=== PATIENT | female | born 1955 | race Caucasian/White ===

== ENCOUNTER 2016-09-05 14:52 | Emergency (ER) | payer MEDICARE, MEDICAID ==
[~2016-09-05 14:52] MED LIST: CIPR500T94 PO; CYCL10TA2 PO; DIAZEPAM10 MG PO; FURO-69 PO; LISI2.5T PO; METF500T4 PO; MORP15TA PO; POTA10CA PO; PREG50CA PO; VENL150C PO; VENL37.5 PO
[2016-09-05 14:55] VITALS: BP 155/111
[2016-09-05] MEDS ORDERED: HYDR-971 PO (15:13)
[2016-09-05] MEDS ORDERED: PENI500T PO (15:13)
--- NOTE | 2016-09-05 15:13 | PHYS DOC ---
Past Medical History Past Medical History: Asthma, Fibromyalgia, Hypertension, Other Additional Past Medical Histor: SBO, ovarian cysts Past Surgical History: Appendectomy, Knee Replacement, Tonsillectomy, Other Additional Past Surgical Histo: roatator L/R x 2, ovarian cysts removal Additional Information: nonsmoker Alcohol Use: None Drug Use: None Adult General Chief Complaint Chief Complaint: DENTAL PROBLEM HPI HPI Patient is a 61 year old female who presents with left mandibular dental pain starting 2 days ago. She had the adjacent tooth extracted a few months ago. She reports swelling of the gums and pain in the ears. She is a non-smoker. Her PCP is Dr. Kasandra Witt. Review of Systems Review of Systems Constitutional: Denies fever or chills. [] Eyes: Denies change in visual acuity, redness, or eye pain. [] HENT: Denies nasal congestion or sore throat. Reports dental pain and ear pain. Integument: Denies rash or skin lesions. [] Neurologic: Denies headache, focal weakness or sensory changes. [] Allergies Allergies Allergies Coded Allergies Type Severity Reaction Last Updated Verified pregabalin Allergy Mild 05/20/16 Yes Physical Exam Physical Exam Constitutional: Well developed, well nourished, no acute distress, non-toxic appearance. [] HENT: Normocephalic, atraumatic, bilateral external ears normal, oropharynx moist, no oral exudates, nose normal. Bilateral TMs without erythema or bulging. There is no posterior pharyngeal erythema or tonsillar edema. Tooth # 22 is carious and tender without significant gingival edema. There is no dental abscess. Eyes: PERRLA, EOMI, conjunctiva normal, no discharge. [] Neck: Normal range of motion, no tenderness, supple, no stridor. [] Skin: Warm, dry, no erythema, no rash. [] Neurologic: Alert and oriented X 3, normal motor function, normal sensory function, no focal deficits noted. [] Psychologic: Affect normal, judgement normal, mood normal. [] Current Patient Data Vital Signs Vital Signs Date Time Temp Pulse Resp B/P Pulse Ox O2 Delivery O2 Flow Rate FiO2 09/05/16 14:55 98.0 108 22 98 Room Air 98.0 EKG EKG [] Radiology/Procedures Radiology/Procedures [] Course & Med Decision Making Course & Med Decision Making Pertinent Labs and Imaging studies reviewed. (See chart for details) [] Dragon Disclaimer Dragon Disclaimer This electronic medical record was generated, in whole or in part, using a voice recognition dictation system. Departure Departure Impression: Primary Impression: Dental caries Disposition: 01 HOME, SELF-CARE Condition: STABLE Referrals: KASANDRA WITT (PCP) Patient Instructions: Dental Caries Additional Instructions: Please complete all of the prescribed antibiotics, even if you are feeling better. Please take the prescribed pain medication as directed. Do not drive or operate heavy machinery while taking pain medication. Please follow up with the dentist of your choice as soon as possible. Return to the emergency department if you have any new or concerning symptoms. Scripts Hydrocodone/Apap 5-325 (Stanley 5-325 Tablet)1 Each Tablet1 Tab PO PRN Q6HRS PRN PAIN #20 TAB Prov:JENNIFER GALE 09/05/16 Penicillin V Potassium 500 Mg Tablet1 Tab PO TID #30 TAB Prov:JENNIFER GALE 09/05/16 JENNIFER GALE Sep 05, 2016 15:13
== END 2016-09-05 15:27 | disposition home or self-care (01) ==
LOC: ER 14:52
DX: K02.9 Dental caries, unspecified (principal); I10 Essential (primary) hypertension; M79.7 Fibromyalgia; J45.909 Unspecified asthma, uncomplicated; Z88.8 Allergy status to other drugs, medicaments and biological substances
CPT/HCPCS: 99283

== ENCOUNTER → 2016-10-19 | Outpatient (CLI) | payer MEDICARE, MEDICAID ==
[~2016-10-19] MED LIST changes: +HYDR-971 PO; +PENI500T PO
--- NOTE | 2016-10-19 12:08 | RAD ---
PROCEDURE Lumbar spine MRI without contrast. HISTORY Radiculopathy. TECHNIQUE Multiplanar and multi sequence magnetic resonance imaging of the lumbar spine was performed without contrast. COMPARISON None. FINDINGS There is mild lumbar scoliosis and hyperlordosis. There is grade 1 anterolisthesis of L4 on L5 and L5 on S1, measuring approximately 2 mm. There is also minimal retrolisthesis of L1 on L2, L2 on L3 and L3 on L4. There is endplate remodeling and disc desiccation at multiple levels. There are few small endplate Schmorl's nodes. There are few hemangiomas. No suspicious osseous lesion is seen. The conus terminates at L1. At T11-T12, there is a left foraminal to lateral disc protrusion superimposed on a disc bulge and left lateral predominant endplate osteophytosis. There is mild facet arthropathy. There is mild left greater than right foraminal stenosis. At T12-L1, there are minimal left paracentral and foraminal disc protrusions superimposed on a disc bulge and endplate remodeling. There is mild facet arthropathy. There is no stenosis. At L1-L2, there is a left foraminal to lateral disc protrusion and broad-based posterior disc protrusion with minimal extrusion superimposed on a disc bulge and left lateral predominant endplate osteophytosis. There is mild facet arthropathy. There is hypertrophy of the ligamentum flavum. There is mild left foraminal stenosis. At L2-L3, there is a disc bulge and endplate remodeling. There is mild facet arthropathy. There is hypertrophy of the ligamentum flavum. There is no stenosis. At L3-L4, there is a shallow posterior disc protrusion with minimal inferior extrusion superimposed on a disc bulge and endplate remodeling. There is moderate facet arthropathy. There is hypertrophy of the ligamentum flavum. There is mild central canal stenosis. At L4-L5, there is a disc bulge and endplate remodeling. There is moderate to severe facet arthropathy. There is hypertrophy of the ligamentum flavum. There is mild bilateral foraminal stenosis. At L5-S1, there is a right lateral predominant disc bulge and endplate remodeling. There is moderate facet arthropathy. There is mild right foraminal stenosis. IMPRESSION 1. Multilevel degenerative change within the lower thoracic and lumbar spine, resulting in stenosis as described above. 2. Minimal grade 1 anterolisthesis of L4 on L5 and L5 on S1 and retrolisthesis at the remainder of the lumbar levels. This is superimposed on mild scoliosis and hyperlordosis. Electronically signed by: Dary Bello (Oct 19, 2016 12:06:47)
== END | disposition home or self-care (01) ==
LOC: MRI 10:22
PROVIDERS: ATTEND Family Medicine
DX: M48.06 Spinal stenosis, lumbar region (principal); M54.12 Radiculopathy, cervical region
CPT/HCPCS: 72148

== ENCOUNTER → 2017-07-14 | Outpatient (CLI) | payer MEDICAID, MEDICARE ==
[~2017-07-14] MED LIST changes: +ASPI-482 PO; +BUSP15TA PO; +CELE100C PO; +IOHEXOL 180 MG/ML 10 ML VIAL. ONE; +OXYC30TA64 PO; +OXYC5CAP PO; -POTA10CA PO; +POTASSIUM CHLO10 MEQ PO; +methylPREDNISolone ACETATE 40 MG/ML VIAL. ONE; +methylPREDNISolone ACETATE 80 MG/ML VIAL. ONE
--- NOTE | 2017-07-15 01:16 | PAIN ---
DATE OF SERVICE: 07/14/2017 INITIAL CONSULTATION FOR PAIN CLINIC CHIEF COMPLAINT: Low back, bilateral lower extremity pain. HISTORY OF PRESENT ILLNESS: The patient is a 62-year-old female who presents with history of pain since 1985 after an injury falling off a loading truck and hit her back on a steel bar, has had pain ever since that time, reports she has had multiple treatments over the years, nothing for the past 11 years. However, she did have some epidural injections at that time in an out of town location. The patient reports it did not help significantly. The patient reports that the pain has been getting worse on a daily basis, increasing; worse with activity, standing, walking and changing positions and better with sitting with lying down but does awaken her from sleep at least 2-3 times at night. The patient reports it can affect her bowel or bladder control, sometimes but no loss of continence. She is using a cane in her right hand and has for years and also a walker at times. She is going further distances. The patient has done exercising, counseling, physical therapy, trigger point injections, epidural injections, none since 1989 by her report. The others were back in 1985 or 1987 and no treatment since that time. The patient has had some physical therapy, however, and some water therapy, she reports within the last few years, she is uncertain on the date. The patient reports the pain is constant, sharp, stabbing, shooting radiating with numbness and tingling, burning, cramping, aching in the bilateral posterior low back into the posterior gluteus, posterior lateral thigh, lateral anterior thighs, posterior calf, slightly worse on the right than the left. Again, worse with activity, standing, walking and changing positions. The patient reports a disability rate from 0-10, 10 being the worst and 0 with family and home responsibilities, recreation, sexual behavior and life support activities, 1 with social activity and 1 with self-care activities. The patient did have an MRI scan of the lumbar spine showing multilevel degenerative changes resulting in stenosis as noted. Grade 1 anterolisthesis L4 on L5 and L5 on S1 with retrolisthesis and superimposed mild scoliosis and hyperlordosis, prominent disk bulge at L5-S1, L3-L4 with shallow posterior disk protrusion, L4-L5 shows disk bulge and endplate remodeling with [id number]-[id number] facet arthropathy. PAST MEDICAL HISTORY: Significant for arthritis; hypertension and diabetes type 2 now without medication, only diet controlled. PAST SURGICAL HISTORY: Previous surgeries include bilateral knee replacements, bilateral rotator cuff, tubal ligation, ovarian cystectomy, cholecystectomy and bowel resection. CURRENT MEDICATIONS: Include cyclobenzaprine, daily baby aspirin, Celebrex, Effexor, oxycodone and buspirone. ALLERGIES: The patient is allergic to CODEINE. FAMILY HISTORY: Significant for hypertension, diabetes, heart disease and cancer. SOCIAL HISTORY: The patient does not smoke, does not drink alcohol and is single. 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 REVIEW OF SYSTEMS: The patient's review of systems is positive for those items mentioned in history of present illness. All systems reviewed and otherwise negative. It is complete, full and well documented on the patient's chart. PHYSICAL EXAMINATION: VITAL SIGNS: Today, the patient's blood pressure is 173/108, pulse 96, respirations 18, temperature 98.0 degrees Fahrenheit, height is 5 feet 8 inches and weight is 262 pounds. GENERAL: The patient is awake, alert, oriented, appropriate and very pleasant demeanor. HEENT: Head shows normocephalic and atraumatic. Extraocular movements are intact, symmetrical. Oral cavity: Mucous membranes moist and pink. Dentition is intact. NECK: Shows anterior throat supple without palpable lymphadenopathy noted. Swallow reflex symmetrical. CHEST: Shows normal with inspection. Breath sounds clear to auscultation bilaterally. HEART: Shows S1 and S2 clear. No murmurs auscultated. ABDOMEN: Soft, nontender and nondistended. No palpable organomegaly. No rebound or guarding demonstrated. BACK: Shows spine grossly in the midline. Normal appearing thoracic kyphosis and lumbar lordotic curvature. No previous bruises, lesions, rashes or scars are noted. Lumbar paraspinous muscle shows symmetrical on inspection with palpation, some [id number] tenderness in the lower lumbar distribution bilaterally without trigger points, without radiation. No tenderness over the spinous processes over the sacrum and sacroiliac regions. The patient has good rotational motion both laterally greater than 10 degrees right and left full extension greater than 10 degrees, forward flexion 45 degrees without significant pain reported. Mild tenderness with extension only. Lower extremities show deep tendon reflexes at 1+ in the patellar and tendo calcaneus tendons are equal. Motor exam is approximately 4 on a scale of 5 but equal and symmetrical dorsiflexion, extension, quadriceps and hamstring flexion. Peripheral pulses are 1+ posterior tibial and dorsalis pedis pulses. No peripheral edema is noted. No clubbing. No cyanosis. Lower extremities are warm and dry to touch, equal in color and appearance. Straight leg raise noted to be positive bilaterally about 45 degrees with decreased pain with knee flexion. Gaenslen's and Arnoldo's maneuvers are negative bilaterally. The patient is able to stand is difficult to try to stand her toes as she loses her balance quickly. She has had very slow deliberate gait with a significant antalgic gait favoring the right lower extremity significantly, using a cane in her right hand to ambulate. IMPRESSION: 1. This is a 62-year-old female with a long history of low back, bilateral lower extremity pain in a radicular fashion since 1985. 2. MRI scan of lumbar spine as noted. 3. Hypertension. 4. Diabetes. 5. Arthritis. PLAN: Options were discussed with the patient including conservative medical management, physical therapy, interventional techniques and she would like to pursue interventional techniques. We discussed a lumbar epidural steroid injection description as well as anatomical models to describe the procedure. Risks were then discussed including, but not limited to bleeding, infection, possibility of epidural hematoma and subsequent neurological compromise, dural puncture, headaches, spinal cord and/or nerve damage, side effects of steroid medication and poor results regarding pain control. The patient understands and wished to proceed. The patient will return to clinic in approximately 2 weeks for followup, was counseled to return appointment, activity level and side effects to be aware of. DIAGNOSIS: Lumbar radiculopathy with lumbar degenerative disk disease and lumbar spondylosis. PROCEDURES: Lumbar epidural steroid injection, translaminar approach L4-L5 level using C-arm fluoroscopic guidance under sterile prep and drape using local anesthetic. MEDICATION INJECTED: A total of 120 mg Depo-Medrol plus 10 mL of preservative-free normal saline and 2 mL of Isovue for contrast. CONDITION AT DISCHARGE: Stable. The patient tolerated the procedure well and had no complications. NOLAN SIMPSON MD DR: DONA/orly JOB#: [id number] / [id number]
== END ==
LOC: PNCL 09:04
PROVIDERS: ATTEND Anesthesiology
DX: M51.16 Intervertebral disc disorders with radiculopathy, lumbar region (principal); M47.896 Other spondylosis, lumbar region; I10 Essential (primary) hypertension; E11.9 Type 2 diabetes mellitus without complications; M19.90 Unspecified osteoarthritis, unspecified site; J45.909 Unspecified asthma, uncomplicated; K21.9 Gastro-esophageal reflux disease without esophagitis; F32.9 Major depressive disorder, single episode, unspecified; F41.9 Anxiety disorder, unspecified; Z96.653 Presence of artificial knee joint, bilateral; Z90.49 Acquired absence of other specified parts of digestive tract; Z98.890 Other specified postprocedural states
CPT/HCPCS: 62323; J1030; J1040

== ENCOUNTER → 2017-07-28 | Outpatient (CLI) | payer MEDICARE ==
--- NOTE | 2017-07-28 20:49 | PAIN ---
DATE OF SERVICE: 07/28/2017 DIAGNOSES: Lumbar radiculopathy with lumbar degenerative disk disease and lumbar spondylosis. HISTORY OF PRESENT ILLNESS: The patient is a 62-year-old female who returns for a followup status post lumbar epidural steroid injection x 1. The patient reports about a 25% improvement overall in the low back and bilateral lower extremity pain. The patient reports the pain is better on the right leg than the left and is improved to some extent, but the left leg still significantly painful. Pain across the low back, radiating to bilateral posterior gluteus, posterior thighs, posterior calves, again worse on the left than the right at this time; worse with standing, walking, changing positions; better with sitting down or lying down. The patient reports she is only able to sleep about 4 hours at a time because the pain does awaken her from sleep still. The patient reports her pain is at 8 on a scale of 10 at its worst, 7 on average and a 7 at its least and is 7 today. The patient describes the pain as sharp, tight, shooting, tingling, burning, cramping and becoming more severe; again improved after the first injection, but mostly improvement with decreased pain on the right side of the low back and the leg. The patient reports no new motor or sensory deficits; however, no new bowel or bladder incontinence or other complaints. PHYSICAL EXAMINATION: VITAL SIGNS: Today, the patient's blood pressure is 144/98, pulse 98, respirations are 18, temperature is 98.1 degree Fahrenheit, height is 5 feet 8 inches, weight is 261 pounds. GENERAL: The patient is awake, alert, oriented, appropriate, very pleasant demeanor. HEENT: Shows normocephalic, atraumatic. Extraocular movements are intact, symmetrical. Oral cavity shows mucous membranes moist and pink. Dentition is intact. NECK: Shows anterior throat supple without palpable lymphadenopathy noted. Swallow reflex is symmetrical. CHEST: Shows normal on inspection. Breath sounds are clear to auscultation bilaterally. HEART: Shows S1, S2 clear. No murmurs auscultated. ABDOMEN: Soft, nontender, nondistended. No palpable organomegaly is noted. No rebound or guarding demonstrated. MUSCULOSKELETAL: Back shows spine grossly in the midline with a normal appearing thoracic kyphosis and mild flattening of the lumbar lordotic curvature. No previous bruises, lesions, rashes or scars are noted on the skin. Lumbar paraspinous muscle shows symmetrical on inspection, with palpation shows some moderate tenderness bilaterally without radiation. Good rotational motion still maintain both laterally greater than 10 degrees right and left as well as extension greater than 10 degrees, forward flexion 45 degrees without difficulty. Lower extremities show deep tendon reflexes 1+ in the patellar and tendo-calcaneus tendons and are equal. Motor exam is approximately 4 on a scale of 5, but equal and symmetrical with dorsiflexion, extension, quadriceps and hamstring flexion bilaterally. Peripheral pulses are 1+ posterior tibial. No peripheral edema is noted. PLAN: Options were discussed with the patient. The patient's old chart was reviewed as her current medication regimen and updated. Current review of systems updated today as well. We will proceed with a second in the series lumbar epidural steroid injection with fluoroscopic guidance. Risks were again discussed including, but not limited to bleeding, infection, possibility of epidural hematoma, subsequent neurological compromise, dural puncture headaches, spinal cord and/or nerve damage, side effects of steroid medication and poor results regarding pain control. The patient understands and wished to proceed. The patient will return to the clinic in approximately 2 weeks for a followup, was counseled on return appointment and activity level and side effects to be aware of. DIAGNOSES: Lumbar radiculopathy with lumbar degenerative disk disease, lumbar spondylosis. PROCEDURE: Lumbar epidural steroid injection, translaminar approach at the L4-L5 level using C-arm fluoroscopic guidance under sterile prep and drape using local anesthetic. MEDICATIONS INJECTED: A total of 120 mg of Depo-Medrol plus 10 mL of preservative-free normal saline and 2 mL of Isovue for contrast. CONDITION AT DISCHARGE: Stable. The patient tolerated the procedure well, had no complications. NOLAN SIMPSON MD DR: DONA/orly JOB#: [id number] / [id number]
== END | disposition home or self-care (01) ==
LOC: PNCL 09:50
PROVIDERS: ATTEND Anesthesiology
DX: M51.16 Intervertebral disc disorders with radiculopathy, lumbar region (principal); M47.896 Other spondylosis, lumbar region; Z88.8 Allergy status to other drugs, medicaments and biological substances; I10 Essential (primary) hypertension; J45.909 Unspecified asthma, uncomplicated; Z90.49 Acquired absence of other specified parts of digestive tract; K21.9 Gastro-esophageal reflux disease without esophagitis; E11.9 Type 2 diabetes mellitus without complications; F41.9 Anxiety disorder, unspecified; F32.9 Major depressive disorder, single episode, unspecified
CPT/HCPCS: 62323; J1030; J1040

== ENCOUNTER → 2018-03-23 | Outpatient (CLI) | payer OTHER | END | disposition home or self-care (01) | LOC: KCIC MRI 09:15 | DX: M47.896 Other spondylosis, lumbar region (principal); M48.061 Spinal stenosis, lumbar region without neurogenic claudication; M51.26 Other intervertebral disc displacement, lumbar region; M12.88 Other specific arthropathies, not elsewhere classified, other specified site; I12.9 Hypertensive chronic kidney disease with stage 1 through stage 4 chronic kidney disease, or unspecified chronic kidney disease; E11.22 Type 2 diabetes mellitus with diabetic chronic kidney disease; N18.3 Chronic kidney disease, stage 3 (moderate); J44.9 Chronic obstructive pulmonary disease, unspecified | CPT/HCPCS: 72148 ==

== ENCOUNTER → 2019-06-09 | Outpatient (CLI) | payer OTHER ==
[~2019-06-09] MED LIST changes: +HYDR-3164 PO; -HYDR-971 PO; -IOHEXOL 180 MG/ML 10 ML VIAL. ONE; +METF500T16 PO; -METF500T4 PO; +POTA10TA12 PO; -POTASSIUM CHLO10 MEQ PO; -methylPREDNISolone ACETATE 40 MG/ML VIAL. ONE; -methylPREDNISolone ACETATE 80 MG/ML VIAL. ONE
--- NOTE | 2019-06-09 11:20 | KCIC ---
LUMBAR SPINE WO CONTRAST History: Lumbar stenosis. Neurogenic claudication. Chronic low back pain. Technique: Multiplanar, multi sequential MR imaging was performed of the lumbar spine. Comparison: March 23, 2018 Findings: Grade 1 anterolisthesis L5 on S1, unchanged. Normal vertebral body height. No fracture. Conus terminates at the normal location. No evidence of nerve root clumping. T11-T12: No canal narrowing. Bilateral facet arthropathy. Mild right and moderate left neuroforaminal narrowing. T12-L1: No canal or neuroforaminal narrowing. L1-L2: Small posterior disc bulge. Mild facet arthropathy. No canal narrowing. No neuroforaminal narrowing. L2-L3: Broad-based disc bulge with superimposed right central disc extrusion extending slightly inferiorly, similar compared to prior. Unchanged right far lateral disc protrusion. Moderate right subarticular recess narrowing. No canal narrowing. Mild facet arthropathy. Moderate right neural foraminal narrowing. Mild left neuroforaminal narrowing. L3-L4: Posterior disc bulge with slight disc extrusion extending inferiorly, unchanged. Moderate facet arthropathy. Mild to moderate canal narrowing. Subarticular recess narrowing. Ligament of flavum thickening. Mild bilateral neural foraminal narrowing. L4-L5: Broad-based posterior disc bulge. Advanced facet arthropathy. No canal narrowing. Subarticular recess narrowing. Mild bilateral neural foraminal narrowing. L5-S1: Anterolisthesis. Advanced facet arthropathy. No canal narrowing. Disc uncovering. Mild bilateral neural foraminal narrowing. When compared the prior examination the degenerative findings are similar. Impression: 1. Moderate multilevel lumbar spondylosis most prominent L2-L3 and L3-L4, unchanged. 2. L3-L4 mild to moderate canal narrowing, unchanged. 3. Multilevel neural foraminal narrowing, unchanged. Electronically signed by: Landon Garcia DO (06/09/2019 11:17 AM) [facility]
== END | disposition home or self-care (01) ==
LOC: KCIC MRI 09:56
PROVIDERS: ATTEND Nurse Practitioner Family
DX: M43.17 Spondylolisthesis, lumbosacral region (principal); M51.26 Other intervertebral disc displacement, lumbar region; M48.07 Spinal stenosis, lumbosacral region; M47.816 Spondylosis without myelopathy or radiculopathy, lumbar region; M12.88 Other specific arthropathies, not elsewhere classified, other specified site; G89.29 Other chronic pain
CPT/HCPCS: 72148

== ENCOUNTER → 2020-05-14 | Outpatient (CLI) | payer MEDICARE, OTHER ==
[~2020-05-14] MED LIST changes: -PREG50CA PO; +PREG50CA91 PO
--- NOTE | 2020-05-14 14:01 | RAD ---
Single AP view the pelvis and 2 views left hip without comparison for fall 3 weeks ago, unable to involute or lay flat due to pain. FINDINGS: There is no definite fracture or acute osseous abnormality identified, however there is severe degenerative arthritis of both hips, with [id number] changes in extensive adjacent sclerosis and subchondral cyst formation involving both femoral heads. IMPRESSION: 1. No fracture or acute osseous abnormality. 2. 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 Electronically signed by: Wiliam Almonte MD (05/14/2020 1:58 PM) [id number]
== END | disposition home or self-care (01) ==
LOC: RAD 09:28
PROVIDERS: ATTEND Family Medicine
DX: M16.0 Bilateral primary osteoarthritis of hip (principal)
CPT/HCPCS: 73502